=== PATIENT | female | born 1960 | race Asian ===

== ENCOUNTER 2019-07-15 06:01 | Day surgery (SDC) | payer OTHER ==
[~2019-07-15] VITALS: Ht 149.9 cm; Wt 38.2 kg
[~2019-07-15 06:01] MED LIST: ACET-2247 PO; ALEN70TA10 PO; ALPR0.255 PO; CALC-1085 PO; CHOL2000 PO; LANS30 PO; MAG1TAB.8 PO; MOME13HF IH; RANI150T7 PO; SODIUM CHLORIDE 0.9% 1,000 ML IV ONE; ZOLP5 PO
[2019-07-15] MEDS ORDERED: SODIUM CHLORIDE 0.9% 1,000 ML IV ONE (07:00)
[2019-07-15] MEDS ORDERED: FentaNYL CITRATE-PF 100 MCG/2 ML VIAL ONE (08:22)
[2019-07-15] MEDS ORDERED: MIDAZOLAM HCL 2 MG/2 ML VIAL ONE (08:22)
[2019-07-15] MEDS ORDERED: MethylPREDNISolone SOD SUCC 125 MG/2 ML VIAL ONE (09:07)
[2019-07-15] MEDS ORDERED: MethylPREDNISolone SOD SUCC 125 MG/2 ML VIAL IVP ONE (09:15)
[2019-07-15] MEDS ORDERED: OXYGEN THERAPY IH SCH (20:00)
== END 2019-07-15 11:05 | disposition home or self-care (01) ==
LOC: SURGERY 06:01
PROVIDERS: ATTEND Internal Medicine Critical Care Medicine
DX: R05 Cough (principal); R91.1 Solitary pulmonary nodule; J47.9 Bronchiectasis, uncomplicated; J34.89 Other specified disorders of nose and nasal sinuses; J98.8 Other specified respiratory disorders; J38.4 Edema of larynx; J45.909 Unspecified asthma, uncomplicated; Z79.899 Other long term (current) drug therapy
CPT/HCPCS: 31623; 31624; 71045; 87015; 87070; 87101; 87205; 87206; 87220; 88108; 88312; J2250; J2930; J3010; J7030

== ENCOUNTER 2021-01-11 06:56 | Day surgery (SDC) | payer OTHER ==
[2021-01-07 11:54] LABS: COVID AG,FIA SOURCE NASOPHARYNGEAL
[~2021-01-11] VITALS: Ht 149.9 cm; Wt 38.2 kg
[~2021-01-11 06:56] MED LIST changes: -ALEN70TA10 PO; +ALEN70TA65 PO; -LANS30 PO; +LANS30CA56 PO; +SODIUM CHLORIDE 0.9% 1,000 ML ONE; +ZOLP-280 PO; -ZOLP5 PO
[2021-01-11] MEDS ORDERED: LIDOCAINE 2% 30 ML JELLY TP ONE (06:57)
[2021-01-11] MEDS ORDERED: BENZOCAINE 20% 50 MCG/SPRAY 57 GM TP ONE (06:57)
[2021-01-11] MEDS ORDERED: ALBUTEROL SULFATE 2.5 MG/0.5 ML NEB SOLUTION NEB ONE ×2 (06:57→09:48)
[2021-01-11] MEDS ORDERED: MIDAZOLAM HCL 2 MG/2 ML VIAL ONE (07:50)
[2021-01-11] MEDS ORDERED: FentaNYL CITRATE PF 100 MCG/2 ML VIAL ONE (07:50)
[2021-01-11] MEDS ORDERED: [UNRECOGNIZED DRUG - CODE] PO (08:27)
[2021-01-11] MEDS ORDERED: AMOX-429 PO (08:29)
[2021-01-11] MEDS ORDERED: DOXY75CA5 PO (08:38)
[2021-01-11] MEDS ORDERED: SUCR1TAB PO (08:38)
[2021-01-11] MEDS ORDERED: FAMO20 PO (08:38)
[2021-01-11] MEDS ORDERED: ZOLP-280 PO (08:38)
[2021-01-11] MEDS ORDERED: MOME13HF IH (08:38)
[2021-01-11] MEDS ORDERED: PRED10 PO (08:38)
[2021-01-11] MEDS ORDERED: BACTDSB PO (08:38)
[2021-01-11] MEDS ORDERED: AZIT-84 PO (08:38)
[2021-01-11] MEDS ORDERED: AMOX1TAB16 PO (08:38)
[2021-01-11] MEDS ORDERED: FLUT16H NASAL (08:38)
[2021-01-11] MEDS ORDERED: MethylPREDNISolone SOD SUCC 125 MG/2 ML VIAL IVP ONE (09:15)
[2021-01-11] MEDS ORDERED: LORazepam 2 MG/ML VIAL ONE (09:41)
[2021-01-11] MEDS ORDERED: MethylPREDNISolone SOD SUCC 125 MG/2 ML VIAL ONE (10:30)
[2021-01-11] MEDS ORDERED: SODIUM CHLORIDE 0.9% 500 ML IV ONE (11:32)
[2021-01-11] MEDS ORDERED: OXYGEN THERAPY IH SCH (20:00)
== END 2021-01-11 12:25 | disposition home or self-care (01) ==
LOC: SURGERY 06:56
PROVIDERS: ATTEND Internal Medicine Critical Care Medicine
DX: B37.0 Candidal stomatitis (principal); T78.3XXA Angioneurotic edema, initial encounter; Y83.8 Other surgical procedures as the cause of abnormal reaction of the patient, or of later complication, without mention of misadventure at the time of the procedure; Z91.013 Allergy to seafood; Z87.01 Personal history of pneumonia (recurrent); Z79.899 Other long term (current) drug therapy; Z98.890 Other specified postprocedural states
CPT/HCPCS: 31623; 31624; 71045; 87015; 87070; 87077; 87101; 87205; 87206; 87220; 87426; 88184; 88185; 88312; C9803; J2060; J2250; J2930; J3010; J7030; J7040; 87186; J7613